=== PATIENT | female | born 2000 | race Caucasian/White ===

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

== ENCOUNTER 2019-11-24 16:45 | Emergency (ER) | payer BC, OTHER ==
[~2019-11-24] VITALS: Ht 167.6 cm; Wt 75.1 kg
[2019-11-24] MEDS ORDERED: MINO100C4 (16:52)
[2019-11-24] MEDS ORDERED: ESCI10TA2 (16:52)
[2019-11-24 17:57] LABS: BASO % 0.4 % (0.0-1.0); EOS # 0.2 10^3/uL (0.0-0.5); EOS % 2.9 % (0.0-3.0); HEMATOCRIT 39.3 % (36.0-47.0); HEMOGLOBIN 12.8 g/dl (12.0-15.5); LYMPH % 24.5 % (24.0-44.0); MEAN CORPUSCULAR HEMOGLOBIN 28.8 pg (27.0-33.0); MEAN CORPUSCULAR HGB CONC 32.6 g/dl (32.0-36.5); MEAN CORPUSCULAR VOLUME 88.3 fl (80.0-96.0); MONO % 12.5 % (0.0-5.0); NEUTROPHILS # 4.9 10^3/uL (1.5-8.5); NEUTROPHILS % 59.5 % (36.0-66.0); PLATELET COUNT, AUTOMATED 333 10^3/uL (150-450); RED BLOOD COUNT 4.45 10^6/uL (4.00-5.40); WHITE BLOOD COUNT 8.2 10^3/uL (4.0-10.0)
[2019-11-24 18:14] LABS: PARTIAL THROMBOPLASTIN TIME 26.7 SECONDS (24.2-38.5); PROTHROMBIN TIME 13.4 SECONDS (12.5-14.3)
[2019-11-24 18:17] LABS: D-DIMER QUANT 298.86 ng/ml (<500)
[2019-11-24 18:18] LABS: HCG, SERUM QUALITATIVE NEGATIVE (NEGATIVE)
[2019-11-24 18:27] LABS: ALBUMIN 3.5 GM/DL (3.2-5.2); ALT/SGPT 18 U/L (12-78); BILIRUBIN,DIRECT < 0.1 MG/DL (0.0-0.2); BILIRUBIN,TOTAL 0.2 MG/DL (0.2-1.0); BLOOD UREA NITROGEN 14 MG/DL (7-18); CALCIUM LEVEL 8.7 MG/DL (8.5-10.1); CARBON DIOXIDE LEVEL 26 MEQ/L (21-32); CHLORIDE LEVEL 109 MEQ/L (98-107); CK-MB VALUE MASS 1.9 NG/ML (<3.6); CPK CREATINE PHOSPHOKINASE 101 U/L (26-192); CREATININE FOR GFR 0.69 MG/DL (0.55-1.30); FREE T4 0.77 NG/DL (0.78-1.33); GLUCOSE, FASTING 85 MG/DL (70-100); LIPASE 126 U/L (73-393); MB/CK RELATIVE INDEX 1.88 (< OR =4); POTASSIUM SERUM 3.9 MEQ/L (3.5-5.1); SODIUM LEVEL 141 MEQ/L (136-145); TOTAL PROTEIN 6.6 GM/DL (6.4-8.2); TROPONIN I < 0.02 NG/ML (< 0.10)
--- NOTE | 2019-11-24 19:02 | REPVR ---
PROCEDURE INFORMATION: Exam: XR Chest, 2 Views Exam date and time: 11/24/2019 5:08 PM Age: 19 years old Clinical indication: Chest pain TECHNIQUE: Imaging protocol: XR of the chest Views: 2 views. COMPARISON: No relevant prior studies available. FINDINGS: Lungs: Unremarkable. No consolidation. Pleural space: Unremarkable. No pleural effusion. No pneumothorax. Heart/Mediastinum: Unremarkable. No cardiomegaly. Bones/joints: Walton rods are seen in the thoracic spine. IMPRESSION: No acute abnormality. Electronically signed by: Tremayne Winkler On 11/24/2019 19:01:54 PM
[2019-11-24 19:40] VITALS: BP 117/70
--- NOTE | 2019-11-25 07:27 | ECGEPIP ---
[facility] - ED Test Date: 2019-11-24 Pat Name: KULWINDER PAIGE Department: Room: - Gender: Female Cash Register Operator: alejandra : 2000 Requested By: JOSEPH CLARK Order Number: [id number] Reading MD: Brandon Nicholas Measurements Intervals Independence Rate: 88 P: 53 WA: 140 QRS: 62 QRSD: 85 T: 42 QT: 358 QTc: 434 Interpretive Statements SINUS RHYTHM POOR R WAVE PROGRESSION NSTTW ABNORMALITY(S) NO PRIORS FOR COMPARISON Electronically Signed on 11-25-2019 7:27:27 EDT by Brandon Nicholas
== END 2019-11-24 19:41 | disposition home or self-care (01) ==
LOC: M ED 16:45
DX: R07.9 Chest pain, unspecified (principal); R00.2 Palpitations; M54.9 Dorsalgia, unspecified; Z79.899 Other long term (current) drug therapy

== ENCOUNTER → 2020-05-15 | Outpatient (REF) | payer OTHER ==
[~2020-05-15] MED LIST: ESCI10TA16; MINO100C4
[2020-05-15 17:00] LABS: BASO % 0.4 % (0.0-1.0); EOS # 0.2 10^3/uL (0.0-0.5); EOS % 2.1 % (0.0-3.0); HEMATOCRIT 41.7 % (36.0-47.0); HEMOGLOBIN 13.6 g/dl (12.0-15.5); LYMPH # 1.6 10^3/uL (1.5-5.0); LYMPH % 22.3 % (24.0-44.0); MEAN CORPUSCULAR HEMOGLOBIN 28.6 pg (27.0-33.0); MEAN CORPUSCULAR HGB CONC 32.6 g/dl (32.0-36.5); MEAN CORPUSCULAR VOLUME 87.8 fl (80.0-96.0); MONO # 0.8 10^3/uL (0.0-0.8); MONO % 11.3 % (2.0-8.0); NEUTROPHILS # 4.6 10^3/uL (1.5-8.5); NEUTROPHILS % 63.5 % (36.0-66.0); PLATELET COUNT, AUTOMATED 324 10^3/uL (150-450); RED BLOOD COUNT 4.75 10^6/uL (4.00-5.40); WHITE BLOOD COUNT 7.3 10^3/uL (4.0-10.0)
[2020-05-15 17:10] LABS: FREE T4 0.7 NG/DL (0.76-1.46); THYROID STIMULATING HORMONE 1.47 uIU/ML (0.358-3.740)
== END ==
LOC: M SFHCCLAY 11:10
PROVIDERS: ATTEND Family Medicine
DX: R53.83 Other fatigue (principal)

== ENCOUNTER → 2020-06-07 | Outpatient (REF) | payer OTHER ==
[2020-06-07 16:54] LABS: HCG, SERUM QUALITATIVE NEGATIVE (NEGATIVE)
[2020-06-07 17:03] LABS: FREE T4 0.83 NG/DL (0.76-1.46); THYROID STIMULATING HORMONE 0.741 uIU/ML (0.358-3.740)
== END ==
LOC: M SFHCCLAY 13:32
PROVIDERS: ATTEND Family Medicine
DX: R79.89 Other specified abnormal findings of blood chemistry (principal); N92.6 Irregular menstruation, unspecified

== ENCOUNTER → 2020-08-10 | Outpatient (CLI) | payer BC, OTHER ==
--- NOTE | 2020-08-14 13:48 | SLEEPCENT ---
NOCTURNAL POLYSOMNOGRAPHY DATE: 08/10/2020 ORDERED BY: Lana Maldonado. Nocturnal polysomnography was performed for evaluation of sleep physiology in this patient with a history of excessive somnolence and nonrestorative sleep. 9 hours and 4 minutes of data were reviewed. There were 499.5 minutes of sleep identified. Sleep latency was prolonged at 35.5 minutes. REM latency was prolonged at 134 minutes. Sleep architecture showed some initial fragmentation. There were 3 REM cycles noted. Overall sleep efficiency was good at 92.6%. The electrocardiogram showed a sinus rhythm with an average heart rate of 80 beats per minute. EEG showed normal waveforms for awake and sleep. There were 38 respiratory events identified of 10 seconds in duration or greater for an apnea-hypopnea index of 5.4. The events were obstructive, not exclusive to sleep stage, not exclusive to sleep position. Arousals from respiratory events occurred 2.5 times per hour. Oxygen desaturations with respiratory events were seen into the 80s. With some minor limb activity, limb movement arousal index was 3.6. IMPRESSION: Obstructive sleep apnea syndrome (G47.33), apnea-hypopnea index 5.4. RECOMMENDATION: Given the patient's symptoms, referral [facility] to [facility] for a [facility] is recommended. In the interim, alcohol and sedative avoidance should be practiced, and caution exercised during the operation of motor vehicles. cc: AMRIK WOODRUFF DO
== END ==
LOC: M SLEEP 20:00
PROVIDERS: ATTEND Nurse Practitioner Family
DX: R06.83 Snoring (principal)

== ENCOUNTER → 2020-09-19 | Outpatient (REF) | payer OTHER ==
[2020-09-19 17:17] LABS: FREE T4 0.73 NG/DL (0.76-1.46); THYROID STIMULATING HORMONE 0.798 uIU/ML (0.358-3.740)
[2020-09-19 17:20] LABS: PROLACTIN 10.9 NG/ML
== END ==
LOC: M PLALAB 12:26
PROVIDERS: ATTEND Advanced Practice Midwife
DX: N92.6 Irregular menstruation, unspecified (principal); R63.5 Abnormal weight gain

== ENCOUNTER → 2020-09-24 | Outpatient (CLI) | payer BC, OTHER ==
--- NOTE | 2020-09-24 16:32 | REP ---
INDICATION: IRREGULAR MENSTRUAL, ABNORMAL WEIGHT GAIN. COMPARISON: None. TECHNIQUE: Transabdominal, endovaginal and Doppler ultrasound. FINDINGS: The uterus is anteverted and normal size measuring 6.4 x 2.8 x 3.1 cm. The endometrium is not thickened measuring 6 mm transversely and is otherwise unremarkable. Right ovary: The right ovary measures 3.8 x 2.4 x 2.7 cm and is normal size. There are multiple subcentimeter right ovarian follicles. Along the inferior margin of the right ovary there is an exophytic cyst measuring 1.1 x 1.2 x 0.8 cm. Left ovary: The left ovary measures 3.0 x 3.0 x 2.3 cm and is normal size. There are multiple subcentimeter follicles. There is no dominant cyst or mass. There is vascular flow in both ovaries with the Doppler resistive index the parenchymal arteries of the right ovary measuring 0.56 and left ovary 0.58. There is no free fluid in the cul-de-sac. The bladder measures 8.0 x 5.7 x 0.7 cm for a volume of IMPRESSION: Multiple small follicles in each ovary. Exophytic cyst along the inferior margin of the right ovary measuring up to 1.2 cm in diameter. Vascular flow in both ovaries. No free fluid in the pelvis. <Electronically signed by Filippo Larson > 09/24/20 [id number]
== END ==
LOC: M WHC 15:46
PROVIDERS: ATTEND Advanced Practice Midwife
DX: N83.291 Other ovarian cyst, right side (principal); N92.6 Irregular menstruation, unspecified; R63.5 Abnormal weight gain

== ENCOUNTER → 2020-10-02 | Outpatient (CLI) | payer BC, OTHER ==
--- NOTE | 2020-10-03 15:25 | SLEEPCENT ---
DATE: 10/02/2020 ORDERED BY: Dr. Iliana Mathias Diagnostic nocturnal polysomnography was performed due to concern for the obstructive sleep apnea syndrome, excessive somnolence, snoring, and nonrestorative sleep. For testing, a ResMed AirFit F20 full-face mask of small size was used. There was 4 cm of water pressure applied to the circuit, and the lights were extinguished. There was 8 hours and 28 minutes of data reviewed. There was 416.5 minutes of sleep identified. Sleep latency was mildly prolonged at 21 minutes. REM latency was prolonged at 31 minutes. Sleep architecture improved with optimal pressure therapy. There was one long REM cycle late in the study. Overall sleep efficiency was 82.6%. The electrocardiogram showed a sinus rhythm with an average heart rate of 80 beats per minute. Rate ranged 60-100. EEG showed normal waveforms for wake and sleep. Respiratory events were fully palliated with CPAP at a pressure of +9. IMPRESSION: Obstructive sleep apnea syndrome (G47.33). RECOMMENDATION: Nightly use of pressure therapy, 9 cm of water.
== END ==
LOC: M SLEEP 20:00
PROVIDERS: ATTEND Internal Medicine Pulmonary Disease
DX: G47.33 Obstructive sleep apnea (adult) (pediatric) (principal)

== ENCOUNTER → 2021-06-04 | Outpatient (REF) | payer OTHER | LOC: M PLALAB 06-03 16:34 | PROVIDERS: ATTEND Advanced Practice Midwife | DX: Z12.4 Encounter for screening for malignant neoplasm of cervix (principal) ==

== ENCOUNTER → 2021-07-30 | Outpatient (CLI) | payer BC, OTHER | LOC: M CARPUL 08:50 | PROVIDERS: ATTEND Family Medicine | DX: Q87.40 Marfan syndrome, unspecified (principal); Z82.49 Family history of ischemic heart disease and other diseases of the circulatory system ==

== ENCOUNTER → 2022-01-13 | Outpatient (REF) | payer OTHER ==
[2022-01-13 17:36] LABS: BASO % 0.2 % (0.0-1.0); EOS # 0.1 10^3/uL (0.0-0.5); EOS % 1.6 % (0.0-3.0); HEMATOCRIT 37.5 % (36.0-47.0); HEMOGLOBIN 12.5 g/dl (12.0-15.5); LYMPH # 1.9 10^3/uL (1.5-5.0); LYMPH % 21.6 % (24.0-44.0); MEAN CORPUSCULAR HEMOGLOBIN 30.1 pg (27.0-33.0); MEAN CORPUSCULAR HGB CONC 33.3 g/dl (32.0-36.5); MEAN CORPUSCULAR VOLUME 90.4 fl (80.0-96.0); MONO # 0.7 10^3/uL (0.0-0.8); MONO % 7.5 % (2.0-8.0); NEUTROPHILS # 6.1 10^3/uL (1.5-8.5); PLATELET COUNT, AUTOMATED 295 10^3/uL (150-450); RED BLOOD COUNT 4.15 10^6/uL (4.00-5.40); WHITE BLOOD COUNT 8.8 10^3/uL (4.0-10.0)
[2022-01-13 18:38] LABS: CHLORIDE LEVEL 106 MMOL/L (98-107); SODIUM LEVEL 140 MMOL/L (136-145)
[2022-01-13 18:39] LABS: ALBUMIN 4.2 G/DL (3.2-5.2); CARBON DIOXIDE LEVEL 25 MMOL/L (20-31)
[2022-01-13 18:43] LABS: THYROID STIMULATING HORMONE 0.797 uIU/ML (0.55-4.78)
[2022-01-13 18:44] LABS: BILIRUBIN,TOTAL 0.2 MG/DL (0.3-1.2); BLOOD UREA NITROGEN 9 MG/DL (9-23); CALCIUM LEVEL 8.9 MG/DL (8.5-10.1); GLUCOSE, FASTING 72 MG/DL (60-100); TRIGLYCERIDES LEVEL 49 MG/DL (<150)
[2022-01-13 18:45] LABS: ALKALINE PHOSPHATASE 63 U/L (46-116); FREE T4 0.93 NG/DL (0.89-1.76)
[2022-01-13 18:46] LABS: ALT/SGPT 13 U/L (7.0-40); AST/SGOT 12 U/L (<34); CHOLESTEROL LEVEL 128 MG/DL (<200); CHOLESTEROL RISK RATIO 2.68 (<5); CREATININE FOR GFR 0.65 MG/DL (0.55-1.30); GLOMERULAR FILTRATION RATE > 60.0 (>60); HDL CHOLESTEROL 47.6 MG/DL (>40); LDL CHOLESTEROL 70.6 MG/DL (<100); NON-HDL-C 80 MG/DL; TOTAL PROTEIN 6.7 G/DL (5.7-8.2)
[2022-01-13 18:47] LABS: POTASSIUM SERUM 4.1 MMOL/L (3.5-5.1)
[2022-01-13 18:57] LABS: HEMOGLOBIN A1c 4.8 % (4.0-6.0)
== END ==
LOC: M SFHCCLAY 14:26
PROVIDERS: ATTEND Nurse Practitioner Family
DX: L70.0 Acne vulgaris (principal); Z82.49 Family history of ischemic heart disease and other diseases of the circulatory system; G47.33 Obstructive sleep apnea (adult) (pediatric); I35.8 Other nonrheumatic aortic valve disorders; E28.2 Polycystic ovarian syndrome; F41.1 Generalized anxiety disorder

== ENCOUNTER → 2023-03-27 | Outpatient (REF) | payer BC, OTHER | LOC: M SFHCWAGY 18:04 | PROVIDERS: ATTEND Advanced Practice Midwife | DX: Z12.4 Encounter for screening for malignant neoplasm of cervix (principal) ==

== ENCOUNTER → 2023-08-14 | Outpatient (REF) | payer BC ==
[2023-08-14 17:08] LABS: BASO % 0.4 % (0.0-1.0); EOS # 0.1 10^3/uL (0.0-0.5); EOS % 1.1 % (0.0-3.0); HEMATOCRIT 39.9 % (36.0-47.0); HEMOGLOBIN 13.5 g/dl (12.0-15.5); LYMPH % 24.9 % (24.0-44.0); MEAN CORPUSCULAR HEMOGLOBIN 30.1 pg (27.0-33.0); MEAN CORPUSCULAR HGB CONC 33.8 g/dl (32.0-36.5); MEAN CORPUSCULAR VOLUME 88.9 fl (80.0-96.0); NEUTROPHILS # 4.9 10^3/uL (1.5-8.5); NEUTROPHILS % 61.3 % (36.0-66.0); PLATELET COUNT, AUTOMATED 292 10^3/uL (150-450); RED BLOOD COUNT 4.49 10^6/uL (4.00-5.40); WHITE BLOOD COUNT 7.9 10^3/uL (4.0-10.0)
[2023-08-14 17:23] LABS: ALBUMIN 4.4 G/DL (3.2-5.2); ALKALINE PHOSPHATASE 73 U/L (46-116); ALT/SGPT 15 U/L (7.0-40); AST/SGOT < 8 U/L (<34); BILIRUBIN,TOTAL 0.8 MG/DL (0.3-1.2); BLOOD UREA NITROGEN 9 MG/DL (9-23); CALCIUM LEVEL 9.6 MG/DL (8.5-10.1); CARBON DIOXIDE LEVEL 29 MMOL/L (20-31); CHLORIDE LEVEL 105 MMOL/L (98-107); CREATININE FOR GFR 0.71 MG/DL (0.55-1.30); GLOMERULAR FILTRATION RATE > 60.0 (>60); GLUCOSE, FASTING 79 MG/DL (60-100); POTASSIUM SERUM 4.2 MMOL/L (3.5-5.1); SODIUM LEVEL 137 MMOL/L (136-145); TOTAL PROTEIN 7.1 G/DL (5.7-8.2)
== END ==
LOC: M SFHCCLAY 14:31
PROVIDERS: ATTEND Physician Assistant
DX: R42 Dizziness and giddiness (principal)

== ENCOUNTER → 2023-08-17 | Outpatient (CLI) | payer BC | LOC: M WHC 08:55 | PROVIDERS: ATTEND Physician Assistant | DX: R10.30 Lower abdominal pain, unspecified (principal) ==

== ENCOUNTER → 2023-09-17 | Outpatient (CLI) | payer BC ==
[2023-09-17 16:24] LABS: BASO # 0.1 10^3/uL (0.0-0.2); BASO % 0.6 % (0.0-1.0); EOS # 0.1 10^3/uL (0.0-0.5); EOS % 1.6 % (0.0-3.0); HEMATOCRIT 42.2 % (36.0-47.0); HEMOGLOBIN 14.1 g/dl (12.0-15.5); LYMPH % 25.2 % (24.0-44.0); MEAN CORPUSCULAR HEMOGLOBIN 30.3 pg (27.0-33.0); MEAN CORPUSCULAR HGB CONC 33.4 g/dl (32.0-36.5); MEAN CORPUSCULAR VOLUME 90.8 fl (80.0-96.0); MONO # 0.8 10^3/uL (0.0-0.8); MONO % 9.8 % (2.0-8.0); NEUTROPHILS % 62.4 % (36.0-66.0); PLATELET COUNT, AUTOMATED 293 10^3/uL (150-450); RED BLOOD COUNT 4.65 10^6/uL (4.00-5.40)
[2023-09-17 16:49] LABS: MONO REFLEX EBV VCA IgM NEGATIVE (NEGATIVE)
[2023-09-17 16:50] LABS: ALBUMIN 4.7 G/DL (3.2-5.2); ALKALINE PHOSPHATASE 65 U/L (46-116); ALT/SGPT 21 U/L (7.0-40); AST/SGOT 9 U/L (<34); BILIRUBIN,TOTAL 0.6 MG/DL (0.3-1.2); BLOOD UREA NITROGEN 9 MG/DL (9-23); CALCIUM LEVEL 9.6 MG/DL (8.5-10.1); CARBON DIOXIDE LEVEL 24 MMOL/L (20-31); CHLORIDE LEVEL 107 MMOL/L (98-107); CREATININE FOR GFR 0.69 MG/DL (0.55-1.30); GLOMERULAR FILTRATION RATE > 60.0 (>60); GLUCOSE, FASTING 76 MG/DL (60-100); POTASSIUM SERUM 4.6 MMOL/L (3.5-5.1); SODIUM LEVEL 137 MMOL/L (136-145); TOTAL PROTEIN 7.4 G/DL (5.7-8.2)
== END ==
LOC: M WUC 14:51
PROVIDERS: ATTEND Nurse Practitioner Family
DX: R10.84 Generalized abdominal pain (principal)

== ENCOUNTER → 2023-09-30 | Outpatient (CLI) | payer BC ==
[~2023-09-30] MED LIST changes: +GASTROGRAFIN SOLUTION 30ML ONE
== END ==
LOC: M PLAIMG 07:55
PROVIDERS: ATTEND Nurse Practitioner Family
DX: R10.84 Generalized abdominal pain (principal)
CPT/HCPCS: 74160; Q9963

== ENCOUNTER → 2023-10-26 | Outpatient (CLI) | payer BC ==
[~2023-10-26] MED LIST changes: -GASTROGRAFIN SOLUTION 30ML ONE
[2023-10-26 17:49] LABS: URINE PREG TEST NEGATIVE (NEGATIVE)
[2023-10-26 18:07] LABS: APPEARANCE, URINE CLEAR (CLEAR); BACTERIA, URINE AUTO NEGATIVE (NEGATIVE); BILIRUBIN, URINE AUTO NEGATIVE (NEGATIVE); BLOOD, URINE BLOOD 1+ (NEGATIVE); COLOR, URINE COLORLESS (YELLOW); GLUCOSE, URINE (UA) AUTO NEGATIVE (NEGATIVE); KETONE, URINE AUTO NEGATIVE (NEGATIVE); LEUKOCYTE ESTERASE, URINE AUTO TRACE (NEGATIVE); MUCUS, URINE SMALL (NEGATIVE); NITRITE, URINE AUTO NEGATIVE (NEGATIVE); PROTEIN, URINE AUTO NEGATIVE (NEGATIVE); RBC, URINE AUTO 0 /HPF (0-3); SPECIFIC GRAVITY URINE AUTO 1.002 (1.002-1.035); SQUAMOUS EPITHELIAL CELL UR AU 0 /HPF (0-6); UROBILINOGEN, URINE AUTO 0.2 mg/dL (0.0-2.0); WBC, URINE AUTO 4 /HPF (0-3)
[2023-10-26 18:42] LABS: HIV 1&2 SCREEN NEGATIVE (NEGATIVE)
[2023-10-26 21:55] LABS: Trichomonas vaginalis (AMP) NOT DETECTED (NEGATIVE)
[2023-10-26 22:19] LABS: GC DNA AMPLIFICATION NEGATIVE (NEGATIVE)
== END ==
LOC: M PLALAB 15:08
PROVIDERS: ATTEND Physician Assistant Medical
DX: R30.0 Dysuria (principal)

== ENCOUNTER → 2024-12-16 | Outpatient (CLI) | payer BC | LOC: M CARPUL 10:00 | PROVIDERS: ATTEND Nurse Practitioner Family | DX: I35.8 Other nonrheumatic aortic valve disorders (principal) ==